=== PATIENT | male | born 1960 | race Caucasian/White ===

== ENCOUNTER 2023-08-17 09:39 | Inpatient (IN) ==
--- NOTE | 2023-08-17 10:37 | Emergency Department Note ---
Impression & Plan Acute lumbar back pain, Lumbar radiculopathy ED Provider Note ED Provider Note NAME: MANUEL BURCH AGE:63 SEX: Male : 1960 ARRIVES VIA: Private vehicle INFORMANT: Patient ED PROVIDER(s): Kylah Aparicio DO CHIEF COMPLAINT: Low back pain HPI: This is a 63-year-old male presents emergency room due to persistent and worsening left low back pain that radiates in the left leg. Patient states he has had intermittent back pain previously and has been able to mitigate his symptoms with chiropractic manipulation. He states a few weeks ago he began having left-sided pain after he sat awkwardly on a couch for several hours. He states he was taking Tylenol and ibuprofen at home without any improvement. He presented here last week as the pain was worse and radiating into his left lower extremity and underwent a CT of his lumbar spine. He was given muscle relaxers and oxycodone additionally with instructions to follow-up. Patient did see his PCP on Tuesday and PCP added oral prednisone additionally. Patient is a known diabetic. PAST MEDICAL HISTORY:See Below PAST SURGICAL HISTORY:See Below FAMILY HISTORY:See Below SOCIAL HISTORY:See Below HOME MEDICATIONS:See Below ALLERGIES:See Below VITALS:See Below PHYSICAL EXAMINATION: GENERAL: alert, uncomfortable appearing, well nourished, mild distress, non- toxic EYE EXAM: normal conjunctiva, PERRL and EOM's grossly intact OROPHARYNX: no exudate, no erythema, lips, buccal mucosa, and tongue normal and mucous membranes are moist NECK: supple, no nuchal rigidity, no adenopathy, non-tender LUNGS: Clear to auscultation. Normal chest wall mechanics, no w/r/r HEART: no murmurs, S1 normal and S2 normal ABDOMEN: abdomen soft, non-tender, normo-active bowel sounds, no masses, no rebound or guarding. BACK: Back is symmetrical on inspection and there is no deformity, no midline tenderness, no CVA tenderness. SKIN: no rashes, petechiae, orbruising UPPER EXTREMITIES: upper extremities are grossly normal. FROM, nml pulses b/l. LOWER EXTREMITIES: No pitting edema. FROM, nml pulses b/l. NEURO EXAM: Normal sensorium, cranial nerves II-XII grossly intact, normal speech, no facial droop,nogross weakness of arms, no gross weakness of legs. Gross sensation intact. No ataxia. Vital Signs: reviewed and remarkable Differential Diagnosis: lumbar radiculopathy, muscle strain, facture, cauda equina, mass, and disc herniation. MEDICAL DECISION MAKING: This is a 63-year-old male who presents due to concern for worsening abdominal pain rating in the left leg. Patient with a prior history of back pain treated conservatively with the addition of an chiropractic manipulation. Patient seen and evaluated here last week with worsening pain CT lumbar spine did show disc herniation. Patient given additional medications here that he has been taking. He did follow-up with his PCP who also added steroids. Despite the addition of all of these medications, he has had persistent worsening pain, difficulty with any movement and attempts at walking, as well as other radicular symptoms. Case discussed with on-call orthospine, Dr. Bruno who recommended MRI and admission to the hospitalist team as he has failed outpatient management. He will further evaluate the patient to decide on additional treatment options. Case discussed with the patient who verbalized understanding was in agreement with the plan. Labs are drawn and sent, IV established, he was given IV morphine and oral gabapentin and sent for MRI of the lumbar spine. Case discussed with the hospitalist team for additional evaluation and management. Consultation(s): 1045: Discussed with Dr. Bruno. Recommends MRI and hospitalist admission and he will see in consult. 1154: Discussed with Yesi Shahid hospitalist team, for additional evaluation and management. ER Treatment Provided: See below Diagnostics Interpreted By Me: -Cardiac Monitoring: An order was placed for continuous cardiac monitoring. The monitor shows a rate of 88 with normal sinus rhythm. -Laboratory studies: As stated above and show below. -Imaging studies: [] Triage Nursing Note Reviewed Prior/Outside Records Reviewed-prior CT lumbar spine reviewed Past Med/Surg History Medical History Hypothyroidism HLD (hyperlipidemia) DM I (diabetes mellitus, type I) Surgical History History of selective injection of anesthetic agent around lumbar nerve root Hx of fusion of cervical spine 2019 Hx of colonoscopy Family History Mother Cancer Father Heart disease Sister Diabetes Social History Smoking Status: Never smoker Second Hand Exposure: No; Do You Dip or Chew Tobacco: No; Tobacco Cessation Education Requested by Patient: No Hx Alcohol Use: Yes Alcohol type: beer Hx Substance Use: No Preferred Language: Citizen Of [place] Communication Ability: Effective Ur Coordinator Required: No Beliefs That Will Affect Care: None Current Living Situation: Spouse Other Information That Helps Us Care for You: No Feels Safe at Home: Yes Safety Concerns: Feels Safe At This Time Assistive Devices: None Allergies Allergies Allergy/AdvReac Type Severity Reaction Status Date / Time No Known Allergies Allergy Unknown Verified 11/16/08 06:53 Home Meds Home Medications Medication Instructions Recorded Confirmed Insulin Lispro (Humalog) 0 unit SC DAILY ##0 11/16/08 08/17/23 Levothyroxine (Synthroid *) 137 mcg PO DAILY ##0 11/16/08 08/17/23 ezetimibe 10 mg tablet 0 mg PO DAILY 08/17/23 08/17/23 prednisone 10 mg tablet See Rx Instructions .Route .COMPLEX 08/17/23 08/17/23 Previous Rx's Medication Instructions Recorded cyclobenzaprine 10 mg tablet 10 mg PO TID PRN muscle spasm #15 08/12/23 tabs lidocaine 5 % topical patch 1 patch topical DAILY #15 ea 08/12/23 (Lidoderm) oxycodone 5 mg tablet 5 mg PO Q8H PRN pain #15 tabs 08/12/23 Results & Data (ED) Vital Signs Vital Signs - 24 hr 08/17/23 09:48 Temperature 36.6 C Temperature Source Temporal Artery Scan Pulse Rate 140 H Respiratory Rate 18 Blood Pressure 118/86 Blood Pressure Mean 96 Pulse Oximetry 97 Oxygen Delivery Method Room Air Sepsis Recent Fever Within 48 Hours No Sepsis New/Unexplained Change in Mental Status No Sepsis Action Taken by Nursing No Action Required Laboratory Data 08/18/23 04:25 08/18/23 04:25 Lab Results 08/17/23 Range/Units 11:12 WBC 13.04 H (4.8-10.8) K/ul RBC 5.68 (4.70-6.10) M/uL Hgb 17.0 (14.0-18.0) g/dl Hct 47.6 (42.0-52.0) % MCV 83.8 (80.0-100.0) fL MCH 29.9 (25.0-34.0) pg MCHC 35.7 (32.0-36.0) g/dL RDW Std Deviation 35.6 L (36.4-46.3) fL RDW Coeff of Jose De Jesus 11.7 (11.5-14.5) % Plt Count 326 (130-400) K/uL MPV 9.4 (9.4-12.4) fL Immature Gran % (Auto) 0.2 % Neut % (Auto) 84.3 % Lymph % (Auto) 9.0 % Hutchinson % (Auto) 6.1 % Eos % (Auto) 0.1 % Baso % (Auto) 0.3 % Neut # (Auto) 10.99 H (1.40-6.50) K/uL Lymph # (Auto) 1.17 L (1.20-3.40) K/uL Hutchinson # (Auto) 0.80 H (0.11-0.59) K/uL Eos # (Auto) 0.01 (0.00-0.50) K/uL Baso # (Auto) 0.04 (0.00-0.20) K/uL Immature Gran # (Auto) 0.03 (0.01-0.20) K/uL Sodium 135 L (136-145) mmol/L Potassium 4.4 (3.5-5.1) mmol/L Chloride 99 (98-107) mmol/L Carbon Dioxide 29 (21-32) mmol/L Anion Gap 7 (3-11) BUN 26 H (6-23) mg/dl Creatinine 1.06 (0.6-1.4) mg/dl Est Cr Clr Drug Dosing Not Reportable Est GFR ( Amer) 85.5 ml/min Est GFR (Non-Af Amer) 73.8 ml/min BUN/Creatinine Ratio 24.5 H (10-20) Glucose 134 H (70-99(Fasting)) mg/dl Calcium 10.2 (8.6-10.3) mg/dl Total Bilirubin 0.9 (0.2-1.0) mg/dl AST 21 (13-39) U/L ALT 19 (7-52) U/L Alkaline Phosphatase 78 (34-104) U/L Total Protein 8.1 (6.0-8.3) gm/dl Albumin 4.6 (3.4-5.0) gm/dl Globulin 3.5 (2.5-4.0) gm/dl Albumin/Globulin Ratio 1.3 (0.9-2) Administered Medications Acetaminophen (Acetaminophen 500 Mg Tab) 1,000 mg PO Q8H [facility] Stop: 09/16/23 13:06 Last Admin: 08/18/23 12:45 Dose: 1,000 mg Documented By: Admin: 08/18/23 04:33 Dose: 1,000 mg Documented By: Admin: 08/17/23 20:26 Dose: 1,000 mg Documented By: Admin: 08/17/23 14:03 Dose: 1,000 mg Documented By: ERICK Cyclobenzaprine HCl (Cyclobenzaprine Hcl 10 Mg Tab) 10 mg PO TID PRN PRN Reason: muscle spasm Stop: 09/16/23 12:51 Last Admin: 08/18/23 00:10 Dose: 10 mg Documented By: ORTIZ Docusate Sodium (Docusate Sodium 100 Mg Cap) 100 mg PO BID WILMA Stop: 09/16/23 12:44 Last Admin: 08/18/23 08:44 Dose: 100 mg Documented By: Admin: 08/17/23 20:25 Dose: 100 mg Documented By: Admin: 08/17/23 14:03 Dose: 100 mg Documented By: ERICK Gabapentin (Gabapentin 100 Mg Cap) 100 mg PO BID [facility] Stop: 09/16/23 20:59 Last Admin: 08/18/23 08:44 Dose: 100 mg Documented By: Admin: 08/17/23 20:26 Dose: 100 mg Documented By: EVELYN Insulin Aspart (Insulin, Rapid-Acting Pump) 1 each SC UD [facility]; Protocol Stop: 09/17/23 00:44 Last Admin: 08/18/23 00:55 Dose: 1 each Documented By: ORTIZ Co-signed By: FLORENCE Admin: 08/18/23 00:40 Dose: 1 each Documented By: ORTIZ Co-signed By: FLORENCE Levothyroxine Sodium (Levothyroxine Sodium 137 Mcg Tablet) 137 mcg PO DAILYBB [facility] Stop: 09/17/23 06:29 Last Admin: 08/18/23 06:19 Dose: 137 mcg Documented By: ORTIZ Lidocaine (Lidocaine 5% 1 Patch) 1 patch TD DAILY [facility] Stop: 09/17/23 08:59 Last Admin: 08/18/23 08:44 Dose: Not Given Documented By: MARTHA Zhenganeous (Remove Lidoderm Patch) 1 each N/A DAILY@2100 [facility] Stop: 09/16/23 20:59 Last Admin: 08/17/23 20:25 Dose: Not Given Documented By: EVELYN Medellincellaneous (Continuous Glucose Monitor) 0 each N/A ACHS WILMA Stop: 09/17/23 12:14 Last Admin: 08/18/23 12:42 Dose: 3 each Documented By: MARTHA Morphine Sulfate (Morphine Sulfate 4 Mg/Ml 1 Ml Carp\Vial) 4 mg IV Q4H PRN PRN Reason: Moderate Pain (Scale 4, 5, 6) Stop: 08/31/23 12:50 Last Admin: 08/18/23 09:58 Dose: 4 mg Documented By: Admin: 08/18/23 00:47 Dose: 4 mg Documented By: Admin: 08/17/23 13:06 Dose: 4 mg Documented By: ERICK Oxycodone HCl (Oxycodone Hcl Ir 5 Mg Tab (Immediate Release)) 5 mg PO Q6H PRN PRN Reason: Mild-Mod Pain (Scale 1-6) Stop: 08/31/23 12:51 Last Admin: 08/18/23 00:10 Dose: 5 mg Documented By: Admin: 08/17/23 18:08 Dose: 5 mg Documented By: WILLIAM Polyethylene Glycol (Polyethylene (Miralax) 17 Gm Pack) 17 gm PO DAILY [facility] Stop: 09/16/23 12:44 Last Admin: 08/18/23 08:44 Dose: 17 gm Documented By: Admin: 08/17/23 14:03 Dose: 17 gm Documented By: ERICK Discontinued Medications Acetaminophen (Acetaminophen 500 Mg Tab) Confirm Administered Dose 1,000 mg .ROUTE .STK-MED ONE Stop: 08/17/23 13:56 Last Admin: 08/17/23 14:03 Dose: Not Given Documented By: ERICK Gabapentin (Gabapentin 100 Mg Cap) 100 mg PO NOW STA Stop: 08/17/23 10:38 Last Admin: 08/17/23 11:12 Dose: 100 mg Documented By: INOCENCIA Sodium Chloride (Nss) 500 mls @ 999 mls/hr IV .Q31M ONE Stop: 08/17/23 11:01 Last Infusion: 08/17/23 13:49 Dose: Infused Documented By: Admin: 08/17/23 12:36 Dose: 999 mls/hr Documented By: INOCENCIA Insulin Aspart (Insulin Aspart Per Unit Charge) 0 units SC ACHS WILMA Stop: 09/16/23 16:29 Last Admin: 08/17/23 20:50 Dose: 2 units Documented By: EVELYN Co-signed By: WILLIAM Admin: 08/17/23 18:47 Dose: 1 units Documented By: WILLIAM Co-signed By: ROSY Insulin Aspart (Insulin Aspart Per Unit Charge) 0 units SC Q4H WILMA Stop: 09/17/23 00:44 Last Admin: 08/18/23 01:23 Dose: Not Given Documented By: FLORENCE Co-signed By: ORTIZ Insulin Glargine (Lantus Per Unit Charge) 10 units SC ONE ONE Stop: 08/17/23 14:01 Last Admin: 08/17/23 14:31 Dose: 10 units Documented By: CHIP Co-signed By: ERICK Miscellaneous (Stop Order: Insulin Pump) 1 each N/A ONE ONE Stop: 08/17/23 15:31 Last Admin: 08/17/23 15:29 Dose: 1 each Documented By: WILLIAM Zhenganeous (Continuous Glucose Monitor) 0 each N/A Q6 WILMA Stop: 09/17/23 05:59 Last Admin: 08/18/23 12:26 Dose: Not Given Documented By: Admin: 08/18/23 06:26 Dose: 1 each Documented By: ORTIZ Morphine Sulfate (Morphine Sulfate 4 Mg/Ml 1 Ml Carp\Vial) 4 mg IV NOW STA Stop: 08/17/23 10:32 Last Admin: 08/17/23 11:09 Dose: 4 mg Documented By: INOCENCIA Discharge Plan Visit Data Chief Complaint: Back Injury/Pain Stated Complaint: LOWER BACK PAIN ED Provider: Kylah Aparicio Discharge Problem: Acute lumbar back pain, Lumbar radiculopathy Patient Disposition: Admitted As Inpatient Discharge Instructions Interventions: ED Discharge Assessment Last Done: 08/17/23 13:09
[2023-08-17] MEDS: MoRPHine SULFATE 4 MG/ML 1 ML CARP\\VIAL IV STA (11:09)
[2023-08-17] MEDS: GABAPENTIN 100 MG CAP PO STA (11:12)
[2023-08-17 11:31] LABS: Basophils # (auto) 0.04 K/uL (0.00-0.20); Basophils % (auto) 0.3 %; Eosinophils # (auto) 0.01 K/uL (0.00-0.50); Eosinophils % (auto) 0.1 %; Hematocrit (blood only) 47.6 % (42.0-52.0); Immature Granulocytes # (auto) 0.03 K/uL (0.01-0.20); Immature Granulocytes % (auto) 0.2 %; Lymphocytes # (auto) 1.17 K/uL (1.20-3.40); Mean Corpuscular Hemoglobin 29.9 pg (25.0-34.0); Mean Corpuscular Hgb Conc 35.7 g/dL (32.0-36.0); Mean Corpuscular Volume 83.8 fL (80.0-100.0); Mean Platelet Volume 9.4 fL (9.4-12.4); Monocytes % (auto) 6.1 %; Neutrophils # (auto) 10.99 K/uL (1.40-6.50); Neutrophils % (auto) 84.3 %; Platelet Count 326 K/uL (130-400); RDW Coefficient of Variation 11.7 % (11.5-14.5); RDW Standard Deviation 35.6 fL (36.4-46.3); Red Blood Count 5.68 M/uL (4.70-6.10); White Blood Count 13.04 K/ul (4.8-10.8)
[2023-08-17 11:52] LABS: Alanine Aminotransferase 19 U/L (7-52); Albumin Globulin Ratio 1.3 (0.9-2); Albumin Level 4.6 gm/dl (3.4-5.0); Alkaline Phosphatase 78 U/L (34-104); Anion Gap 7 (3-11); Aspartate Aminotransferase 21 U/L (13-39); BUN Creatinine Ratio 24.5 (10-20); Bilirubin,Total 0.9 mg/dl (0.2-1.0); Blood Urea Nitrogen 26 mg/dl (6-23); Calcium 10.2 mg/dl (8.6-10.3); Carbon Dioxide 29 mmol/L (21-32); Chloride 99 mmol/L (98-107); Est GFR (African American) 85.5 ml/min; Est GFR (Non-African American) 73.8 ml/min; Globulin 3.5 gm/dl (2.5-4.0); Glucose 134 mg/dl (70-99(Fasting)); Potassium 4.4 mmol/L (3.5-5.1); Sodium 135 mmol/L (136-145); Total Protein 8.1 gm/dl (6.0-8.3)
--- NOTE | 2023-08-17 12:04 | Magnetic Resonance Report ---
MRI OF THE LUMBAR SPINE WITHOUT CONTRAST CLINICAL HISTORY: Back pain with left-sided radiculopathy. Disc extrusion. COMPARISON STUDY: Lumbar spine MRI July 01, 2017. Lumbar spine CT August 12, 2023. TECHNIQUE: Utilizing a 1.5 Oliva magnet and dedicated coil, multiplanar, multiecho imaging of the [facility] spine was performed without IV contrast. FINDINGS: For purposes of numbering on this exam, the L5-S1 disc space is assigned to axial image 23 of 25. 4 m m of anterolisthesis of L5 on S1 is due to facet arthrosis. This is similar to previous MRI. Vertebra l body heights are maintained. There is no lumbar spine fracture. No intracanalicular mass or fluid c ollection is present. Conus terminates at the T12-L1 level. Paravertebral soft tissues are unremarkab le. There is moderate multilevel degenerative disc disease and facet arthrosis within the lumbar spin e. L1-2: Mild facet arthrosis is present. The central canal and neural foramina patent. L2-3: There is mild facet arthrosis. The central canal is patent. There is minimal disc bulge, eccent jessi to the left. There is mild bilateral neural foraminal stenosis. L3-4: A 1.4 x 0.9 x 0.4 cm left paracentral disc extrusion, extending inferiorly, corresponds to the finding on lumbar spine CT of August 12, 2023. This results in severe narrowing of the left lateral rec ess with mass effect upon the descending left L4 nerve root. This is new since MRI July 01, 2017. There is facet arthrosis at this level. The central canal is patent. There is mild bilateral neural foraminal stenosis. L4-5: Severe disc space narrowing is noted. There is mild facet arthrosis. The central canal is paten t. Moderate to severe bilateral neural foraminal stenosis, unchanged since previous MRI. L5-S1: Moderate disc space narrowing is noted. There is moderate facet arthrosis. The central canal i s patent. Moderate to severe bilateral neural foraminal stenosis is unchanged since previous MRI. IMPRESSION: 1. Moderate size left paracentral disc extrusion at L3-L4 which results in severe narrowing of the le ft lateral recess with mass effect upon the descending left L4 nerve root. This could be correlated w ith left L4 radiculopathy. This corresponds to the finding on lumbar spine CT of August 12, 2023. 2. No central canal stenosis. Moderate to severe multilevel neural foraminal stenosis, similar to MRI of July 01, 2017. 3. No lumbar spine fractures. ACT 112: Negative or not required by law. Electronically signed by: Eben Mccurdy M.D. 08/17/2023 12:02 PM
--- NOTE | 2023-08-17 12:10 | History & Physical Report ---
Date of Service August 17, 2023 Assessment & Plan (1) Lumbar radiculopathy: (2) Lumbar disc disorder: (3) Acute lumbar back pain: (4) DM I (diabetes mellitus, type I): (5) HLD (hyperlipidemia): (6) Hypothyroidism: Plan: Acute lumbar Back pain L3-4 Disc herniation with nerve root impingement Lumbar radiculopathy - Admit to med surg w tele -BMP, CBC reviewed -Patient has recently been on multiple pain med regimen including lidocaine, oxycodone, Flexeril as outpatient without relief - will continue these meds and add as below - initially was held off of steroids due to DM type I steroids but after follow- up with PCP he was started on prednisone on 08/14 with 40 mg prednisone and tapering down over 5 days. Hold po steroid for now -Consult Dr. Bruno with orthospine -Allow diet this afternoon and make n.p.o. at midnight in case of needs for surgical intervention -IV pain control ordered for breakthrough pain -Reports last BM was on Tuesday, miralax and colace now then scheduled for constipation DM Type I - Insulin dependent - Glycemic pharmacy for steroid use with DM type I and likely needs for surgical intervention - Last A1c was 6.5 in Feb 2024, recheck with am labs Hypothyroidism -Continue Synthroid daily HLD - Check lipid panel with am labs DVT ppx: teds, scds Lines: 2 pIV FEN/GI: DM type I, NPO at midnight CODE: Full code Dispo: From home, likely to remain in the hospital x 1-2 days A total of 76minutes were spent with greater than 50% of that time face to face with the patient, personally reviewing all current laboratories, imaging studies, past medication reconciliation, outpatient chart review, and discussion with specialists to collaborate care for the patient with attending. Please see attending documentation for corrections and/or additions. History of Present Illness Chief Complaint: Back pain Primary Care Provider: Balwinder Guillen MD This is a 63-year-old male with PMHx of DM type I, hypothyroidism, history of SVT, HLD, chronic pain in both lower extremities who presents to the hospital with worsening lower back pain. He was in the ER on 08/11/2022 with complaints of lower back pain where he underwent a CT of the lumbar spine which showed a large left posterior lateral disc extrusion at L3-L4 with large inferiorly extruded fragment, impinging on the exiting left L3 nerve root as well as the transitioning left sided nerve root. MRI of the back is pending. As the patient may require surgical intervention, Dr. Bruno has been called. Patient states that his significant back pain has been going on for at least 1.5 weeks. He reports that it is to the left side of his low lumbar spine and occasionally radiates pain down the left butt cheek into his leg. Denies any saddle anesthesia, bowel or bladder incontinence. He has difficulty laying flat and cannot sit down. The most comfortable position that he can begin is to lay on his stomach, with his left leg hanging off the table to reduce pressure on his lumbar spine. He denies any recent traumatic falls, injury or changes in exercise regimen which would have aggravated the area. He admits to having a longstanding history of back issues but has only ever had PT and has Had good results with such. In 2018 he had cervical disc fusion x 2 in his neck, has no issues with that since that timeframe. It was done in [place]. He is unable to say if addition of prednisone to his other pain regimen of oxycodone, lidocaine, and Flexeril had provided any relief. He last took his medications this morning. Allergies Allergy/AdvReac Type Severity Reaction Status Date / Time No Known Allergies Allergy Unknown Verified 11/16/08 06:53 Home Medications Medication Instructions Recorded Confirmed Type Insulin Lispro (Humalog) 0 unit SC DAILY ##0 11/16/08 08/17/23 History Levothyroxine (Synthroid *) 137 mcg PO DAILY ##0 11/16/08 08/17/23 History cyclobenzaprine 10 mg tablet 10 mg PO TID PRN muscle spasm #15 08/12/23 08/17/23 Rx tabs lidocaine 5 % topical patch 1 patch topical DAILY #15 ea 08/12/23 08/17/23 Rx (Lidoderm) oxycodone 5 mg tablet 5 mg PO Q8H PRN pain #15 tabs 08/12/23 08/17/23 Rx ezetimibe 10 mg tablet 0 mg PO DAILY 08/17/23 08/17/23 History prednisone 10 mg tablet See Rx Instructions .Route .COMPLEX 08/17/23 08/17/23 History Past Med/Surg History Medical History (Updated 08/17/23 @ 11:56 by Alona Bradford PA-C) Hypothyroidism HLD (hyperlipidemia) DM I (diabetes mellitus, type I) Surgical History (Updated 08/17/23 @ 11:57 by Alona Bradford PA-C) History of selective injection of anesthetic agent around lumbar nerve root Hx of fusion of cervical spine 2019 Hx of colonoscopy Family History (Updated 08/17/23 @ 11:57 by Alona Bradford PA-C) Mother Cancer Father Heart disease Sister Diabetes Social History Smoking Status: Never smoker Second Hand Exposure: No; Do You Dip or Chew Tobacco: No; Tobacco Cessation Education Requested by Patient: No Hx Alcohol Use: Yes Alcohol type: beer Hx Substance Use: No Preferred Language: Lao Communication Ability: Effective Invasive Cardiologist Required: No Beliefs That Will Affect Care: None Current Living Situation: Spouse Other Information That Helps Us Care for You: No Feels Safe at Home: Yes Safety Concerns: Feels Safe At This Time Assistive Devices: None Review of Systems Review of Systems: Constitutional: No fever, sweats or chills Eyes: No diplopia, no worsening or blurred vision ENT: normal hearing, no trouble swallowing Respiratory: No cough, sputum, dyspnea at rest or on exertion Cardiovascular: No chest pain, tightness or palpitations Abdomen: No pain, nausea, vomiting, diarrhea, + constipation last BM was on Tuesday, routinely has bowel movement once daily Back: As per HPI Musculoskeletal: No joint pain, calf pain, swelling Neurologic: No weakness, numbness/tingling, or balance problems Psychiatric: No anxiety or depression Skin: No rash or itch Physical Exam Physical Exam: General: awake, alert, no apparent distress, White, physically fit male, BMI of 24.4 Head: Normocephalic, atraumatic ENT: PERRL, EOMI, no pharyngeal exudate, mucous membranes moist Please refer to the rest of physical exam in attending addendum. Results & Data Results & Data Vital Signs (Past 12 Hours) Vital Signs Temp Pulse Resp BP Pulse Ox O2 Del Method 08/17/23 09:48 36.6 C 140 H 18 118/86 97 Room Air Laboratory Results 08/17/23 11:12 WBC 13.04 H RBC 5.68 Hgb 17.0 Hct 47.6 MCV 83.8 MCH 29.9 MCHC 35.7 RDW Std Deviation 35.6 L RDW Coeff of Jose De Jesus 11.7 Plt Count 326 MPV 9.4 Immature Gran % (Auto) 0.2 Neut % (Auto) 84.3 Lymph % (Auto) 9.0 [place] % (Auto) 6.1 Eos % (Auto) 0.1 Baso % (Auto) 0.3 Neut # (Auto) 10.99 H Lymph # (Auto) 1.17 L [place] # (Auto) 0.80 H Eos # (Auto) 0.01 Baso # (Auto) 0.04 Immature Gran # (Auto) 0.03 Sodium 135 L Potassium 4.4 Chloride 99 Carbon Dioxide 29 Anion Gap 7 BUN 26 H Creatinine 1.06 Est Cr Clr Drug Dosing Not Reportable Est GFR ( Amer) 85.5 Est GFR (Non-Af Amer) 73.8 BUN/Creatinine Ratio 24.5 H Glucose 134 H Calcium 10.2 Total Bilirubin 0.9 AST 21 ALT 19 Alkaline Phosphatase 78 Total Protein 8.1 Albumin 4.6 Globulin 3.5 Albumin/Globulin Ratio 1.3 Diagnostic Findings Lumbar Spine MRI 08/17/23 10:47 MRI OF THE LUMBAR SPINE WITHOUT CONTRAST CLINICAL HISTORY: Back pain with left-sided radiculopathy. Disc extrusion. COMPARISON STUDY: Lumbar spine MRI July 01, 2017. Lumbar spine CT August 12, 2023. TECHNIQUE: Utilizing a 1.5 Oliva magnet and dedicated coil, multiplanar, multiecho imaging of the lumbar spine was performed without IV contrast. FINDINGS: For purposes of numbering on this exam, the L5-S1 disc space is assigned to axial image 23 of 25. 4 mm of anterolisthesis of L5 on S1 is due to facet arthrosis. This is similar to previous MRI. Vertebral body heights are maintained. There is no lumbar spine fracture. No intracanalicular mass or fluid collection is present. Conus terminates at the T12-L1 level. Paravertebral soft tissues are unremarkable. There is moderate multilevel degenerative disc disease and facet arthrosis within the lumbar spine. L1-2: Mild facet arthrosis is present. The central canal and neural foramina patent. L2-3: There is mild facet arthrosis. The central canal is patent. There is minimal disc bulge, eccentric to the left. There is mild bilateral neural foraminal stenosis. L3-4: A 1.4 x 0.9 x 0.4 cm left paracentral disc extrusion, extending inferiorly, corresponds to the finding on lumbar spine CT of August 12, 2023. This results in severe narrowing of the left lateral recess with mass effect upon the descending left L4 nerve root. This is new since MRI July 01, 2017. There is facet arthrosis at this level. The central canal is patent. There is mild bilateral neural foraminal stenosis. L4-5: Severe disc space narrowing is noted. There is mild facet arthrosis. The central canal is patent. Moderate to severe bilateral neural foraminal stenosis, unchanged since previous MRI. L5-S1: Moderate disc space narrowing is noted. There is moderate facet a rthrosis. The central canal is patent. Moderate to severe bilateral neural foraminal stenosis is unchanged since previous MRI. IMPRESSION: 1. Moderate size left paracentral disc extrusion at L3-L4 which results in severe narrowing of the left lateral recess with mass effect upon the descending left L4 nerve root. This could be correlated with left L4 radiculopathy. This corresponds to the finding on lumbar spine CT of August 12, 2023. 2. No central canal stenosis. Moderate to severe multilevel neural foraminal stenosis, similar to MRI of July 01, 2017. 3. No lumbar spine fractures. ACT 112: Negative or not required by law. Electronically signed by: Eben Mccurdy M.D. 08/17/2023 12:02 PM Code Status & VTE Plan Code Status Full code Supervising Physician Co-Signing Physician Notes Pt seen and examined by me, care coordinated alberto/ Eusebio Bradford PA-C, pls refer to her note above for further detail. Pt is a 63 yo M with DM type I, hypothyroidism, history of SVT, HLD, chronic pain in both lower extremities who presents to the hospital with worsening lower back pain. He was in the ER on 08/11/2022 with complaints of lower back pain where he underwent a CT of the lumbar spine which showed a large left posterior lateral disc extrusion at L3-L4 with large inferiorly extruded fragment, impinging on the exiting left L3 nerve root as well as the transitioning left sided nerve root. MRI of the back ordered and ortho-spine (Dr. Bruno) was contacted by ER. Pt received IV morphine in the ED and feeling somewhat better. He is standing as sitting makes him uncomfortable. He reports left side of his low lumbar spine and occasionally radiates pain down the left butt cheek into his leg. He is awake, alert, answers appropriately. NC/AT. L-lateral lumbar spine tenderness to palp., heart sounds +mild tachycardia, lung sounds clear to auscultation, abdomen soft, nontender. Cont. w/ pain management as above, added IV morphine prn. bowel regimen. Ortho- spine consulted. Cont. to closely monitor. MD Cass
[2023-08-17] MEDS: SODIUM CHLORIDE 0.9% 500 ML IV ONE (12:36)
[2023-08-17] MEDS ORDERED: PHARMACY GLYCEMIC MGMT CONSULT PRN (12:51)
[2023-08-17] MEDS: MoRPHine SULFATE 4 MG/ML 1 ML CARP\\VIAL IV PRN (13:06)
[2023-08-17] MEDS ORDERED: GLUCOSE 10 TAB/TUBE PO PRN (14:00)
[2023-08-17] MEDS ORDERED: GLUCOSE 40% GEL 15 GM TUBE PO PRN (14:00)
[2023-08-17] MEDS ORDERED: DEXTROSE 50% 50 ML SYRINGE IV PRN (14:00)
[2023-08-17] MEDS ORDERED: CARBOHYDRATES FOR HYPOGLYCEMIA PO PRN (14:00)
[2023-08-17] MEDS ORDERED: GLUCAGON FOR INJ 1 MG VIAL IM PRN (14:00)
--- NOTE | 2023-08-17 14:01 | Pharmacy Report ---
Pharmacy Glycemic Short Note 2 - Date of Service August 17, 2023 - Glycemic Short BSG Results (Last 24 hours): 08/17/23 11:12 Glucose 134 H OUTPATIENT ANTIDIABETIC REGIMEN: * Humalog pump * [id number]: 0.4 units/hr * [id number]: 1.2 units/hr * [id number]: 0.225 units/hr * 7040-6449: 0.4 units/hr * total basal: 11 units/day * Correction factor: 40 mg/dL/unit, insulin/carb ratio: 1 unit per 20 grams CHO consumed HbA1c: 6.5% (02/09/23) ASSESSMENT: * HIRAL is a 63 year old male with T1DM managed with insulin pump as an outpatient * Admitted with lumbar radiculopathy, possible surgical intervention tomorrow pending ortho spine consult * Discussed with hospitalist, plan is to discontinue insulin pump and transition to SC basal/bolus regimen while inpatient given potential need for steroids/surgery * Will plan on brief overlap of pump with first dose of basal this afternoon * Will give slight dose reduction in basal given planned NPO status after midnight PLAN FOR INPATIENT GLYCEMIC CONTROL: * Hold outpatient insulin pump * Basal insulin * Lantus 10 units SC daily * Bolus insulin * NovoLog per scale ACHS or Q6hrs while NPO * Goal Range: Low 120 mg/dL - High 150 mg/dL * Correction Factor: 40 mg/dL/unit * Nutritional / Prandial insulin per carb ratio of 1 unit per 20 grams CHO consumed
[2023-08-17] MEDS: DOCUSATE SODIUM 100 MG CAP PO SCH (14:03)
[2023-08-17] MEDS: ACETAMINOPHEN 500 MG TAB PO SCH (14:03)
[2023-08-17] MEDS: ACETAMINOPHEN 500 MG TAB ONE (14:03)
[2023-08-17] MEDS: POLYETHYLENE (MIRALAX) 17 GM PACK PO SCH (14:03)
[2023-08-17] MEDS: LANTUS PER UNIT CHARGE SC ONE (14:31)
[2023-08-17 15:03] LABS: Appearance Urine Clear (Clear); Bilirubin Urine Negative (Negative); Blood Urine Negative (Negative); Color Urine Yellow; Glucose Urine UA Negative (Negative); Ketones Urine Trace (Negative); Leukocyte Esterase Urine Negative (Negative); Nitrite Urine Negative (Negative); Protein Urine Negative (Negative); Specific Gravity Urine 1.018 (1.000-1.030); Urobilinogen Urine Negative (Negative); pH Urine 5.5 (4.5-7.5)
[2023-08-17] MEDS: [UNRECOGNIZED DRUG - REMARK] ONE (15:29)
[2023-08-17] MEDS: oxyCODONE HCL IR 5 MG TAB (IMMEDIATE RELEASE) PO PRN (18:08)
[2023-08-17] MEDS: INSULIN ASPART PER UNIT CHARGE SC SCH (18:47)
[2023-08-17] MEDS: GABAPENTIN 100 MG CAP PO SCH (20:26)
[2023-08-18] MEDS: CYCLOBENZAPRINE HCL 10 MG TAB PO PRN (00:10)
[2023-08-18] MEDS: INSULIN, Rapid-Acting PUMP SC SCH (00:40)
[2023-08-18] MEDS ORDERED: INSULIN ASPART 100 UNITS/ML VIAL SC PRN (00:41)
[2023-08-18] MEDS: INSULIN ASPART PER UNIT CHARGE SC SCH (01:23)
[2023-08-18 05:20] LABS: Hematocrit (blood only) 43.8 % (42.0-52.0); Hemoglobin 14.8 g/dl (14.0-18.0); Mean Corpuscular Hemoglobin 29.7 pg (25.0-34.0); Mean Corpuscular Hgb Conc 33.8 g/dL (32.0-36.0); Mean Corpuscular Volume 87.8 fL (80.0-100.0); Mean Platelet Volume 9.7 fL (9.4-12.4); Platelet Count 300 K/uL (130-400); RDW Coefficient of Variation 11.8 % (11.5-14.5); RDW Standard Deviation 38.2 fL (36.4-46.3); Red Blood Count 4.99 M/uL (4.70-6.10); White Blood Count 6.41 K/ul (4.8-10.8)
[2023-08-18 05:31] LABS: BUN Creatinine Ratio 20.5 (10-20); Calcium 9.5 mg/dl (8.6-10.3); Chol HDL Ratio 2.9 (0-5); Creatinine Clr Calc Pharmacy 66.6 ml/min; Potassium 4.7 mmol/L (3.5-5.1)
[2023-08-18] MEDS: LEVOTHYROXINE SODIUM 137 MCG TABLET PO SCH (06:19)
[2023-08-18] MEDS: Continuous Glucose Monitor SCH ×2 (06:26→12:42)
[2023-08-18] MEDS ORDERED: Continuous Glucose Monitor SCH (07:30)
[2023-08-18 07:44] LABS: Estimated Average Glucose 131 mg/dl; Hemoglobin A1C 6.2 % (4.5-5.6)
[2023-08-18] MEDS: LIDOCAINE 5% 1 PATCH TD SCH (08:44)
--- NOTE | 2023-08-18 10:41 | Consultation ---
Date of Consultation August 18, 2023 Assessment & Plan (1) Lumbar radiculopathy: Dr. Bruno has reviewed imaging and plan. We are going to try and manage this conservatively. Patient is very active gentleman including cycling and skiing. He hopes to avoid surgical intervention. He has chronic issues at L4-5 and L5- S1 which have been well-managed with pain management and physical therapy. New issue is his acute disc herniation L3-4 on the left which is consistent with his pain pattern. I will consult the pain management team in hopes of trying to get him in steroid injection sooner than on an outpatient basis with Dr. Razo. He does understand that if pain management fails may ultimately be a candidate for surgical intervention addressing the L3-4 disc herniation. Questions have been answered in detail. History of Present Illness Reason for Consultation: Lumbar disc herniation Attending Physician: Sarai Emerson MD History of Present Illness This is a pleasant 63-year-old gentleman who presents to the emergency room on his second visit yesterday with subsequent admission. He states 2 weeks ago he started with acute onset of left lower extremity pain. No precipitating accident, trauma, fall. He has had chronic lower back and right leg issues managed by physical therapy with Damian Michelle. Now his pain is along the left lumbar region down his buttock and skips his thigh but then involves the anterior marroquin. Does not extend to his foot. Right leg is asymptomatic. Denies bowel or bladder dysfunction. Denies perineum numbness. Pain is reproduced when lying supine or when in a seated position. He states at home he is mostly been walking/pacing the house. He is also comfortable in a prone position. He is only been taking Tylenol for pain at home but states he received an oxycodone prescription at his last ER visit.He does report he has an upcoming appointment on August 21 with his established pain management physician Dr. Razo. He reports his consultation only. Allergies Allergy/AdvReac Type Severity Reaction Status Date / Time No Known Allergies Allergy Unknown Verified 11/16/08 06:53 Home Medications Medication Instructions Recorded Confirmed Type Insulin Lispro (Humalog) 0 unit SC DAILY ##0 11/16/08 08/17/23 History Levothyroxine (Synthroid *) 137 mcg PO DAILY ##0 11/16/08 08/17/23 History cyclobenzaprine 10 mg tablet 10 mg PO TID PRN muscle spasm #15 08/12/23 08/17/23 Rx tabs lidocaine 5 % topical patch 1 patch topical DAILY #15 ea 08/12/23 08/17/23 Rx (Lidoderm) oxycodone 5 mg tablet 5 mg PO Q8H PRN pain #15 tabs 08/12/23 08/17/23 Rx ezetimibe 10 mg tablet 0 mg PO DAILY 08/17/23 08/17/23 History prednisone 10 mg tablet See Rx Instructions .Route .COMPLEX 08/17/23 08/17/23 History Patient History Medical History Hypothyroidism HLD (hyperlipidemia) DM I (diabetes mellitus, type I) Surgical History History of selective injection of anesthetic agent around lumbar nerve root Hx of fusion of cervical spine 2019 Hx of colonoscopy Family History Mother Cancer Father Heart disease Sister Diabetes Social History Smoking Status: Never smoker Second Hand Exposure: No; Do You Dip or Chew Tobacco: No; Tobacco Cessation Education Requested by Patient: No Hx Alcohol Use: Yes Alcohol type: beer Hx Substance Use: No Preferred Language: Tamazight Communication Ability: Effective Weigher Packing Required: No Beliefs That Will Affect Care: None Current Living Situation: Spouse Other Information That Helps Us Care for You: No Feels Safe at Home: Yes Safety Concerns: Feels Safe At This Time Assistive Devices: None Review of Systems Review of Systems: All systems reviewed & are unremarkable except as noted in HPI & below Physical Exam Physical Exam: Upon entering the room he is in a prone position on the bed. He is cooperative exam. Alert and oriented x 3 negative logrolling bilaterally. Negative ankle clonus. Motor testing is 5 5 bilateral EHL, dorsiflexion, plantarflexion, quadriceps, hamstrings, hip flexors, hip abductor's and hip adductor's. Negative tension signs. Negative contralateral straight leg raise. He is nontender to position of the midline lumbar spine. He is nontender to compression over the bilateral sciatic notch regions. Results & Data Vital Signs (Past 12 Hours) Vital Signs Temp Pulse Pulse Resp BP Pulse Ox O2 Del Method 08/18/23 09:12 Room Air 08/18/23 07:44 73 08/18/23 07:36 36.6 C 77 18 127/68 99 Room Air 08/18/23 04:09 86 08/18/23 03:33 36.6 C 72 16 117/61 97 Room Air 08/17/23 23:46 36.5 C 82 18 149/84 H 97 Room Air Diagnostic Findings [place], [place] [phone] Magnetic Resonance Report Patient: MANUEL BURCH Admit Date: 08/17/23 MR#: [id number] Address1: [address] [place] [address] Acct ID:[id number] Address2: Date: 1960 [facility] Zip: [place] [address] Age: 63 Location: ED Sex: M Room/Bed: Att Phy: Diagnosis: LOWER BACK PAIN Chiqui Phy: Balwinder Guillen MD Service Date: 08/17/23 Fam Phy: Interpreting Phy: Eben Mccurdy MDAdmit Phy: Ordering Phy: Kylah Aparicio DO cc: ~ MRI OF THE LUMBAR SPINE WITHOUT CONTRAST CLINICAL HISTORY: Back pain with left-sided radiculopathy. Disc extrusion. COMPARISON STUDY: Lumbar spine MRI July 01, 2017. Lumbar spine CT August 12, 2023. TECHNIQUE: Utilizing a 1.5 Oliva magnet and dedicated coil, multiplanar, multiecho imaging of the lumbar spine was performed without IV contrast. FINDINGS: For purposes of numbering on this exam, the L5-S1 disc space is assigned to axial image 23 of 25. 4 mm of anterolisthesis of L5 on S1 is due to facet arthrosis. This is similar to previous MRI. Vertebral body heights are maintained. There is no lumbar spine fracture. No intracanalicular mass or fluid collection is present. Conus terminates at the T12-L1 level. Paravertebral soft tissues are unremarkable. There is moderate multilevel degenerative disc disease and facet arthrosis within the lumbar spine. L1-2: Mild facet arthrosis is present. The central canal and neural foramina patent. L2-3: There is mild facet arthrosis. The central canal is patent. There is minimal disc bulge, eccentric to the left. There is mild bilateral neural foraminal stenosis. L3-4: A 1.4 x 0.9 x 0.4 cm left paracentral disc extrusion, extending inferi clarence, corresponds to the finding on lumbar spine CT of August 12, 2023. This results in severe narrowing of the left lateral recess with mass effect upon the descending left L4 nerve root. This is new since MRI July 01, 2017. There is facet arthrosis at this level. The central canal is patent. There is mild bilateral neural foraminal stenosis. L4-5: Severe disc space narrowing is noted. There is mild facet arthrosis. The central canal is patent. Moderate to severe bilateral neural foraminal stenosis, unchanged since previous MRI. L5-S1: Moderate disc space narrowing is noted. There is moderate facet arthrosis. The central canal is patent. Moderate to severe bilateral neural foraminal stenosis is unchanged since previous MRI. IMPRESSION: 1. Moderate size left paracentral disc extrusion at L3-L4 which results in severe narrowing of the left lateral recess with mass effect upon the descending left L4 nerve root. This could be correlated with left L4 radiculopathy. This corresponds to the finding on lumbar spine CT of August 12, 2023. 2. No central canal stenosis. Moderate to severe multilevel neural foraminal stenosis, similar to MRI of July 01, 2017. 3. No lumbar spine fractures. ACT 112: Negative or not required by law. Electronically signed by: Eben Mccurdy M.D. 08/17/2023 12:02 PM Dictated: 08/17/23 1155 Transcribed: 08/17/23 1155 [place], [place] [phone] CT Scan Report Patient: MANUEL BURCH Admit Date: 08/12/23 MR#: [id number] Address1: [address] [place] [address] Acct ID:[id number] Address2: Date: 1960 [facility] Zip: [place] [address] Age: 63 Location: ED Sex: M Room/Bed: Att Phy: Diagnosis: SEVERE BACK PAIN Chiqui Phy: Balwinder Guillen MD Service Date: 08/12/23 [facility] Phy: Interpreting Phy: William Kwon MDAyane Phy: Ordering Phy: Brianna Vargas CRNP cc: ~ CT SCAN OF THE LUMBAR SPINE WITHOUT IV CONTRAST CLINICAL HISTORY: Low back pain. COMPARISON STUDY: MRI of the lumbar spine dated 07/01/2017. Lumbar spine radiographs dated 09/20/2017. TECHNIQUE: CT scan of the lumbar spine was performed from the lower thoracic spine to the sacrum. Images are reviewed in the axial, sagittal, and coronal planes. IV contrast was not administered for this examination. A dose lowering technique was utilized adhering to the principles of ALARA. CT DOSE: 877.73 mGy.cm FINDINGS: The skeletal structures are well-mineralized. There is no evidence of acute fracture or malalignment. Vertebral body height is maintained throughout the lumbar spine. There is 9 mm of anterolisthesis at L5-S1. Alignment is otherwise preserved. There is no spondylolysis. The transverse and spinous processes appear intact. No lytic or blastic lesion is seen. Anterior and lateral marginal osteophytes are seen throughout. Mild facet arthropathy is noted in the lower lumbar region. There is moderate to severe disc space narrowing at L4-L5 and L5-S1. Minimal disc space narrowing is seen at the remaining lumbar levels. There is a left posterolateral disc extrusion at L3-L4 seen on axial image #248. This effaces the left anterior aspect of the thecal sac, contributes to left-sided subarticular and neural foraminal stenosis, likely impinges on the exiting left L3 nerve root. There is a 1.4 cm inferiorly extruded fragment seen on image #251 which impinges on the transiting left-sided nerve roots. There is a posterior disc osteophyte complex at L4-L5 without significant central canal stenosis. Lateral disc bulges at this level contribute to bilateral subarticular stenosis and may abut the exiting bilateral L4 nerve roots. There is likely at least moderate bilateral neural foraminal stenosis at L4-L5. A right posterolateral disc bulge at L5-S1 contributes to subarticular stenosis and likely impinges on the exiting right L5 nerve root. The visualized sacrum and bony pelvis appear intact. The paraspinous soft tissues are normal as imaged. There is [id number] atherosclerotic calcification of the abdominal aorta which is normal in caliber. No retroperitoneal lymphadenopathy is seen. IMPRESSION: 1. No acute bony abnormality is seen involving the lumbar spine. 2. Large left posterolateral disc extrusion at L3-L4 with a large inferiorly extruded fragment. This impinges on the exiting left L3 nerve root as well as the transiting left-sided nerve roots. 3. Milder degenerative disc disease at additional levels as above. ACT 112: Negative or not required by law. Dictated: 08/12/2023 2:29 PM Transcribed: 08/12/2023 2:48 PM Husam [id number] [id number] [id number] Electronically signed by: William Kwon M.D. 08/12/2023 2:55 PM Dictated: 08/12/23 1429 Transcribed: 08/12/23 1448
--- NOTE | 2023-08-18 11:50 | Hospitalist Progress Note ---
Date of Service August 18, 2023 Assessment & Plan (1) Lumbar radiculopathy: (2) Lumbar disc disorder: (3) Acute lumbar back pain: (4) DM I (diabetes mellitus, type I): (5) HLD (hyperlipidemia): (6) Hypothyroidism: Plan: Acute lumbar Back pain L3-4 Disc herniation with nerve root impingement Lumbar radiculopathy Continue pain regimen which includes lidocaine, oxycodone, Flexeril. Orthospine evaluation noted. Will await pain management evaluation. Continue bowel regimen PT/OT eval DM Type I Insulin dependent Hemoglobin A1c of 6.2 Monitor and manage appropriately Hypothyroidism Continue Synthroid daily HLD Lipid panel noted DVT ppx: teds, scds CODE: Full code I spent a total of 50 minutes coordinating, documenting and providing care for this patient excluding time spent in performance of separately billed services Admission and Anticipated Discharge Date Admission Date: August 17, 2023 Subjective Patient seen and examined. Reports left-sided lower back radiating into left buttock, skips thigh and goes down from left knee towards ankle Denies any sensory deficits. Bowel/bladder incontinence or retention Reports constipation which he attributed to the pain medicine Denies any other complaints on review of system Physical Exam Constitutional: + well hydrated; no acute distress Laying prone Eyes: PERRL, conjunctivae normal, anicteric sclerae ENMT: external ear and nose normal, oropharynx normal Respiratory: normal respiratory effort, lungs clear to auscultation Cardiovascular: Rate/Rhythm: regular rate and regular rhythm S1 S2 Gastrointestinal (Abdomen): normal bowel sounds, soft, nontender, no hepatosplenomegaly Musculoskeletal: no cyanosis or clubbing, extremities motor strength 5/5 Neurologic: PERRL, EOMI, accommodation nl, no face palsy, no dysarthria Psychiatric: A+Ox3, euthymic affect Results & Data Results & Data Vital Signs (Past 12 Hours) Vital Signs Temp Pulse Pulse Resp BP Pulse Ox O2 Del Method 08/18/23 11:18 36.6 C 82 20 135/72 95 Room Air 08/18/23 09:12 Room Air 08/18/23 07:44 73 08/18/23 07:36 36.6 C 77 18 127/68 99 Room Air 08/18/23 04:09 86 08/18/23 03:33 36.6 C 72 16 117/61 97 Room Air Laboratory Results Abnormal lab results 08/17/23 08/17/23 08/17/23 Range/Units 13:44 17:59 20:45 BUN/Creatinine Ratio (10-20) Glucose (70-99(Fasting)) mg/dl POC Glucose 117 H 228 H (70-99) mg/dl Hemoglobin A1c (4.5-5.6) % Cholesterol (0-200) mg/dl Urine Ketones Trace H (Negative) 08/18/23 08/18/23 Range/Units 00:53 04:25 BUN/Creatinine Ratio 20.5 H (10-20) Glucose 129 H (70-99(Fasting)) mg/dl POC Glucose 234 H (70-99) mg/dl Hemoglobin A1c 6.2 H (4.5-5.6) % Cholesterol 209 H (0-200) mg/dl Urine Ketones (Negative)
--- NOTE | 2023-08-19 11:22 | Hospitalist Progress Note ---
Date of Service August 19, 2023 Assessment & Plan (1) Lumbar radiculopathy: (2) Lumbar disc disorder: (3) Acute lumbar back pain: (4) DM I (diabetes mellitus, type I): (5) HLD (hyperlipidemia): (6) Hypothyroidism: Plan: Acute lumbar Back pain L3-4 Disc herniation with nerve root impingement Lumbar radiculopathy Continue pain regimen which includes lidocaine, oxycodone, Flexeril. Orthospine evaluation noted. Pain management recs noted Oxycodone increased to 10mg prn. Morphine reduced Plan for outpatient injection with pain management Aggressive bowel regimen. Will give extra miralax and defer suppository for now per patient's prefernce PT/OT eval noted DM Type I Insulin dependent Hemoglobin A1c of 6.2 Monitor and manage appropriately Hypothyroidism Continue Synthroid daily HLD Lipid panel noted Had some PVC on tele EKG is NSR Electrolytes are normal DVT ppx: teds, scds CODE: Full code Goal is to optimize pain control and dc to follow up with Pain management I spent a total of 40 minutes coordinating, documenting and providing care for this patient excluding time spent in performance of separately billed services Admission and Anticipated Discharge Date Admission Date: August 17, 2023 Subjective Patient seen and examined. Still reports left-sided lower back radiating into left buttock, skips thigh and goes down from left knee towards ankle Reports constipation which he attributed to the pain medicine Denies any other complaints on review of system Physical Exam Constitutional: + well hydrated; no acute distress Eyes: PERRL, conjunctivae normal, anicteric sclerae ENMT: external ear and nose normal, oropharynx normal Respiratory: normal respiratory effort, lungs clear to auscultation Cardiovascular: Rate/Rhythm: regular rate and regular rhythm S1 S2 Gastrointestinal (Abdomen): normal bowel sounds, soft, nontender, no hepatosplenomegaly Musculoskeletal: no cyanosis or clubbing, extremities motor strength 5/5 Neurologic: PERRL, EOMI, accommodation nl, no face palsy, no dysarthria Psychiatric: A+Ox3, euthymic affect Results & Data Results & Data Vital Signs (Past 12 Hours) Vital Signs Temp Pulse Pulse Resp BP Pulse Ox O2 Del Method 08/19/23 07:23 36.6 C 79 18 126/73 97 Room Air 08/19/23 07:16 57 L 08/19/23 03:29 36.5 C 86 16 138/81 96 Room Air Laboratory Results Abnormal lab results 08/19/23 08/19/23 Range/Units 11:59 12:16 BUN/Creatinine Ratio 22.5 H (10-20) Glucose 119 H (70-99(Fasting)) mg/dl POC Glucose 100 H (70-99) mg/dl
--- NOTE | 2023-08-19 12:24 | Pain Management Consultation ---
Date of Consultation August 19, 2023 Assessment & Plan (1) Lumbar radiculopathy: (2) Lumbar disc herniation: Plan 1. I have discussed pursuing a left L3-L4 transforaminal epidural steroid injection for the patient. Risks and benefits were reviewed with the patient and he is understanding. He would like to proceed with the procedure. He will be scheduled for this procedure Tuesday08/22/23 on an outpatient basis. I did review preprocedural instructions with the patient and handed him a print out with that information. He will be scheduled with the specific time to come in for the procedure and my office will work on obtaining insurance authorization for this procedure. 2. Limit the use of IV morphine in preparation for discharge. Continue medication regimen of Flexeril, lidocaine patches, oxycodone. Could consider increasing the oxycodone to 10 mg if not improved with 5 mg so that he may return home. Patient is in agreement with this plan. History of Present Illness Reason for Consultation: Intractable back pain Attending Physician: Sarai Emerson MD History of Present Illness This is a 63-year-old male that has been admitted to the [facility] for intractable back pain. Approximately 2 weeks ago he developed pain along the low back and down the left leg. He describes 50% axial low back pain and 50% radicular pain. Radicular pain is described as a burning sensation along the lateral aspect of the left calf to the ankle. Pain is aggravated with prolonged sitting, lying supine. Positional changes does provide mild pain relief. Pain is rated 2/10 at its best and 9/10 at its worst. He has previously tried oxycodone, lidocaine patches, and cyclobenzaprine. Oral steroids were avoided due to the patient being a type I diabetic. Inpatient he has been receiving the same medication regimen as well as morphine 4 mg IV for pain relief and over the last 24 hours has used it twice. He has been performing daily stretches and exercises. He denies any bowel/bladder incontinence, saddle anesthesia, foot drop, leg weakness, falls. He [facility] to become established but would choose to pursue which ever office may be able to offer an injection soonest. And patient has been evaluated by orthopedic spine surgery and interventional procedure was preferred prior to resorting to surgical intervention. Case discussed with Dr. Layla Knapp Allergies Allergy/AdvReac Type Severity Reaction Status Date / Time No Known Allergies Allergy Unknown Verified 11/16/08 06:53 Home Medications Medication Instructions Recorded Confirmed Type Insulin Lispro (Humalog) 0 unit SC DAILY ##0 11/16/08 08/17/23 History Levothyroxine (Synthroid *) 137 mcg PO DAILY ##0 11/16/08 08/17/23 History cyclobenzaprine 10 mg tablet 10 mg PO TID PRN muscle spasm #15 08/12/23 08/17/23 Rx tabs lidocaine 5 % topical patch 1 patch topical DAILY #15 ea 08/12/23 08/17/23 Rx (Lidoderm) oxycodone 5 mg tablet 5 mg PO Q8H PRN pain #15 tabs 08/12/23 08/17/23 Rx ezetimibe 10 mg tablet 0 mg PO DAILY 08/17/23 08/17/23 History prednisone 10 mg tablet See Rx Instructions .Route .COMPLEX 08/17/23 08/17/23 History Patient History Medical History Hypothyroidism HLD (hyperlipidemia) DM I (diabetes mellitus, type I) Surgical History History of selective injection of anesthetic agent around lumbar nerve root Hx of fusion of cervical spine 2019 Hx of colonoscopy Family History Mother Cancer Father Heart disease Sister Diabetes Social History Smoking Status: Never smoker Second Hand Exposure: No; Do You Dip or Chew Tobacco: No; Tobacco Cessation Education Requested by Patient: No Hx Alcohol Use: Yes Alcohol type: beer Hx Substance Use: No Preferred Language: Chadian Communication Ability: Effective Roll Skinner Required: No Beliefs That Will Affect Care: None Current Living Situation: Spouse Other Information That Helps Us Care for You: No Feels Safe at Home: Yes Safety Concerns: Feels Safe At This Time Assistive Devices: None Physical Exam Physical Exam: GENERAL: This is a 63-year-old male that does not appear in any acute distress. HEAD/FACE: Normocephalic and atraumatic. EYES: No drainage or conjunctival injection. ENT: Nose without bleeding or discharge. Oral mucosa moist. NECK: Full ROM without apparent pain. No swelling or masses noted. RESPIRATORY: Patient with unlabored breathing. No signs of respiratory distress. CHEST/AXILLA: Chest movement symmetrical. No deformities noted. ABDOMEN/GI: No distension BACK: Normal lumbar lordosis. Full range of motion in all planes. There is mild tenderness along the left L4 region. No SI joint tenderness. No myofascial spasm or trigger points noted. SKIN: [place], warm and dry. No rash noted. MS/EXTREMITY: No swelling, no deformities. 5/5 strength of the lower extremities. Positive straight leg raise on the left, negative on the right. NEURO: Alert and appears oriented. Speech is fluent. Cranial Nerves are grossly intact. PSYCH: Alert, pleasant, affect is calm Results (Pain Clinic) Diagnostic Review MRI Findings: MRI OF THE LUMBAR SPINE WITHOUT CONTRAST CLINICAL HISTORY: Back pain with left-sided radiculopathy. Disc extrusion. COMPARISON STUDY: Lumbar spine MRI July 01, 2017. Lumbar spine CT August 12, 2023. TECHNIQUE: Utilizing a 1.5 Oliva magnet and dedicated coil, multiplanar, multiecho imaging of the lumbar spine was performed without IV contrast. FINDINGS: For purposes of numbering on this exam, the L5-S1 disc space is assigned to axial image 23 of 25. 4 mm of anterolisthesis of L5 on S1 is due to facet arthrosis. This is similar to previous MRI. Vertebral body heights are maintained. There is no lumbar spine fracture. No intracanalicular mass or fluid collection is present. Conus terminates at the T12-L1 level. Paravertebral soft tissues are unremarkable. There is moderate multilevel degenerative disc disease and facet arthrosis within the lumbar spine. L1-2: Mild facet arthrosis is present. The central canal and neural foramina patent. L2-3: There is mild facet arthrosis. The central canal is patent. There is minimal disc bulge, eccentric to the left. There is mild bilateral neural foraminal stenosis. L3-4: A 1.4 x 0.9 x 0.4 cm left paracentral disc extrusion, extending inferiorly, corresponds to the finding on lumbar spine CT of August 12, 2023. This results in severe narrowing of the left lateral recess with mass effect upon the descending left L4 nerve root. This is new since MRI July 01, 2017. There is facet arthrosis at this level. The central canal is patent. There is mild bilateral neural foraminal stenosis. L4-5: Severe disc space narrowing is noted. There is mild facet arthrosis. The central canal is patent. Moderate to severe bilateral neural foraminal stenosis, unchanged since previous MRI. L5-S1: Moderate disc space narrowing is noted. There is moderate facet arthrosis. The central canal is patent. Moderate to severe bilateral neural foraminal stenosis is unchanged since previous MRI. IMPRESSION: 1. Moderate size left paracentral disc extrusion at L3-L4 which results in severe narrowing of the left lateral recess with mass effect upon the descending left L4 nerve root. This could be correlated with left L4 radiculopathy. This corresponds to the finding on lumbar spine CT of August 12, 2023. 2. No central canal stenosis. Moderate to severe multilevel neural foraminal stenosis, similar to MRI of July 01, 2017. 3. No lumbar spine fractures. ACT 112: Negative or not required by law. Electronically signed by: Eben Mccurdy M.D. 08/17/2023 12:02 PM
[2023-08-19 12:46] LABS: BUN Creatinine Ratio 22.5 (10-20); Calcium 9.9 mg/dl (8.6-10.3); Creatinine Clr Calc Pharmacy 73.2 ml/min; Est GFR (African American) 89.6 ml/min; Est GFR (Non-African American) 77.3 ml/min; Magnesium 2.1 mg/dl (1.7-2.4); Phosphorus 3.5 mg/dl (2.5-4.9); Potassium 4.5 mmol/L (3.5-5.1)
[2023-08-19] MEDS: POLYETHYLENE (MIRALAX) 17 GM PACK PO ONE (12:53)
[2023-08-19] MEDS: bisacodyL 10 MG SUPP PR STA (16:14)
[2023-08-19] MEDS: oxyCODONE HCL IR 5 MG TAB (IMMEDIATE RELEASE) PO PRN (20:07)
[2023-08-19] MEDS: MoRPHine SULFATE 4 MG/ML 1 ML CARP\\VIAL IV PRN (22:43)
--- NOTE | 2023-08-20 00:25 | Electrocardiogram Report ---
Test Reason : Blood Pressure : / mmHG Vent. Rate : 072 BPM Atrial Rate : 072 BPM P-R Int : 154 ms QRS Dur : 096 ms QT Int : 384 ms P-R-T Axes : 079 070 056 degrees QTc Int : 420 ms Normal sinus rhythm Normal ECG No previous ECGs available Confirmed by Kaz Cr ([id number]) on 08/20/2023 12:25:05 AM Referred By: Joseph Odell Confirmed By:Kaz Cr
[2023-08-20] MEDS: ONDANSETRON INJ 2 MG/ML 2 ML VIAL IV PRN (06:03)
--- NOTE | 2023-08-20 11:23 | Discharge Summary ---
Date of Service August 20, 2023 Admission HPI Per Admitting Provider This is a 63-year-old male with PMHx of DM type I, hypothyroidism, history of SVT, HLD, chronic pain in both lower extremities who presents to the hospital with worsening lower back pain. He was in the ER on 08/11/2022 with complaints of lower back pain where he underwent a CT of the lumbar spine which showed a large left posterior lateral disc extrusion at L3-L4 with large inferiorly extruded fragment, impinging on the exiting left L3 nerve root as well as the transitioning left sided nerve root. MRI of the back is pending. As the patient may require surgical intervention, Dr. Bruno has been called. Patient states that his significant back pain has been going on for at least 1.5 weeks. He reports that it is to the left side of his low lumbar spine and occasionally radiates pain down the left butt cheek into his leg. Denies any saddle anesthesia, bowel or bladder incontinence. He has difficulty laying flat and cannot sit down. The most comfortable position that he can begin is to lay on his stomach, with his left leg hanging off the table to reduce pressure on his lumbar spine. He denies any recent traumatic falls, injury or changes in exercise regimen which would have aggravated the area. He admits to having a longstanding history of back issues but has only ever had PT and has Had good results with such. In 2018 he had cervical disc fusion x 2 in his neck, has no issues with that since that timeframe. It was done in [place]. He is unable to say if addition of prednisone to his other pain regimen of oxycodone, lidocaine, and Flexeril had provided any relief. He last took his medications this morning. Admission Exam Per Admitting Provider He is awake, alert, answers appropriately. NC/AT. L-lateral lumbar spine tenderness to palp., heart sounds +mild tachycardia, lung sounds clear to auscultation, abdomen soft, nontender. Principal Diagnosis Lumbar radiculopathy Lumbar disch herniation Discharge Exam Constitutional + well hydrated; no acute distress Eyes PERRL, conjunctivae normal, anicteric sclerae ENMT external ear and nose normal, oropharynx normal Respiratory normal respiratory effort, lungs clear to auscultation Cardiovascular Rate/Rhythm: regular rate and regular rhythm Gastrointestinal (Abdomen) normal bowel sounds, soft, nontender, no hepatosplenomegaly Musculoskeletal no cyanosis or clubbing, extremities motor strength 5/5 Neurologic PERRL, EOMI, accommodation nl, no face palsy, no dysarthria Psychiatric A+Ox3, euthymic affect Discharge Data Allergies Allergy/AdvReac Type Severity Reaction Status Date / Time No Known Allergies Allergy Unknown Verified 11/16/08 06:53 Consultations 08/17/23 11:55 ED Decision to Admit Stat 08/17/23 12:21 Consult Orthopedic Spine Surgery Routine 08/18/23 10:36 Consult Pain Management Routine Ordered Studies 08/17/23 10:47 MR lumbar spine wo con Stat Hospital Course (1) Lumbar radiculopathy: (2) Lumbar disc disorder: (3) Acute lumbar back pain: (4) DM I (diabetes mellitus, type I): (5) HLD (hyperlipidemia): (6) Hypothyroidism: Acute lumbar Back pain L3-4 Disc herniation with nerve root impingement Lumbar radiculopathy Lumbar CT and MRI showed moderate size left paracentral disc extrusion at L3-L4 which resulted in severe narrowing of the left lateral recess with mass effect upon the descending left L4 nerve root. No central canal stenosis. Moderate to severe multilevel neural foraminal stenosis. No lumbar spinal fractures Patient was evaluated by orthospine surgeon who recommended pain management. Plan management evaluated patient and scheduled to have transforaminal epidural steroid injection on 08/22/2023 Patient was evaluated by PT/OT. Oxycodone as needed increased to 10 mg for now to procedure. Started on gabapentin. Bowel regimen DM Type I Insulin dependent Hemoglobin A1c of 6.2 Hypothyroidism Continue Synthroid daily Total Time Total Time Spent Total Time Spent (In Minutes): 35 Total Time Includes: Examination of the Patient, Discharge Planning and Medication Reconciliation Discharge Plan Discharge Items Patient Disposition: Home - Self-Care Reason For Visit: LUMBAR DISCH HERNIATION Discharge Diagnosis: Lumbar radiculopathy Activity: Resume your previous activity Non-emergency contact: Primary Care Provider and Pain Management Call non-emergency contact if: you have any medication questions Follow-up/Referrals: Balwinder Guillen MD [Primary Care Provider] - (Date & Time 08/24/2023 11:00 AM Provider Ewelina Pan MD Department General Internal Medicine [facility] ) Diet: Carb Count or DM1 Addtl Attending Provider Instructions: Mr Austin You came to the hospital with worsening low back pain going to your left buttock and left leg. You were evaluated and found to have lumbar disc herniation with effect on the nerve roots which correlates with your radiculopathy. You were evaluated by orthopedic spinal surgeon and pain management. You are being discharged to follow-up with stage setting painter apprentice on Tuesday for procedure. For now, you are being discharged on gabapentin and oxycodone as needed. Please continue to take bowel regimen to ensure regular bowel movement. It was a pleasure taking care of you Pending Studies at Discharge: No Stand-Alone Forms: [facility], Smoking Cessation Medications and DC Order Prescriptions: New gabapentin 100 mg Capsule 100 mg PO BID Qty: 60 0RF polyethylene glycol 3350 [Miralax] 17 gram powder in packet 17 g PO DAILY PRN (Reason: constipation) Qty: 30 0RF Continued Insulin Lispro (Humalog) INJECTION 0 unit SC DAILY Qty: 0 Patient Comments: Total daily basal rate: 11 unit/day, CF-1:40, CR-1:20 Levothyroxine (Synthroid *) 0.15 MG tablet 137 mcg PO DAILY Qty: 0 Rx Instructions: [facility] verified most recent fill is for 137 mcg lidocaine [Lidoderm] 5 % adhesive patch,medicated 1 patch topical DAILY Qty: 15 0RF Rx Instructions: leave on most painful area for up to 12 hrs cyclobenzaprine 10 mg tablet 10 mg PO TID PRN (Reason: muscle spasm) Qty: 15 0RF prednisone 10 mg tablet See Rx Instructions .ROUTE .COMPLEX Rx Instructions: as directed ezetimibe 10 mg tablet 0 mg PO DAILY Rx Instructions: verified 10 mg daily with [facility], last filled 07/02/23 Changed oxycodone 5 mg tablet 10 mg PO Q8H PRN (Reason: pain) Qty: 20 0RF Discharge Orders: Discharge Order (Routine); Ordered 08/20/23 Ordered By: Sarai Emerson Admission Data Admit Date/Time: 08/17/23 12:21 Attending Provider: Sarai Emerson I. Admit Provider: Joseph Odell Primary Care Provider: Balwinder Guillen Other Providers: Charlie Bruno; Joseph Odell; Juwan Stallworth; Layla Knapp; Torres Yeh; Mila Vickers; Migue Hayes. Other Interventions: Discharge Summary Assessment (RN) Last Done: 08/20/23 11:30
== END 2023-08-20 12:01 | disposition home or self-care (01) | DRG 552 ==
LOC: ED 09:39 → SUATTDRO 12:21 → EDINP 12:21 → 2W 13:09